=== PATIENT | male | born 1995 | race Caucasian/White ===

== ENCOUNTER 2020-11-17 21:16 | Emergency (ER) | payer BC ==
[2020-11-17] MEDS ORDERED: LISI10TA25 PO (21:39)
--- NOTE | 2020-11-17 21:39 | ED Cardiac General ---
History of Present Illness General Chief Complaint: Cardiac/General Problems Stated Complaint: HIGH BLOOD PRESSURE Source: patient Exam Limitations: no limitations (SHONA VERDIN APRN) History of Present Illness Date Seen by Provider: Nov 17, 2020 Time Seen by Provider: 21:35 Initial Comments To ER with high blood pressure. He saw [facility] walk-in clinic for an ear infection. She was found to have high blood pressure there and was told to go home and monitor it. This evening he checked it and found it to be 160/100. This alarmed him and he became nervous. He also states that he got a new job and is moving and has been under a bit more stress than usual. After noticing his blood pressure to be high this evening he developed a bit of chest pain which he believes to be related to his anxiety. He has no shortness of breath. He has no medical history. He is only worried about the numbers of the blood pressure. He has an appointment for [facility] follow-up tomorrow. Timing/Duration: changing over time Severity: moderate Location: central Activities at Onset: none Prior CP/Workup: no prior chest pain NTG SL CERTIFIED PROCEDURAL CODER: No ASA po CERTIFIED PROCEDURAL CODER: No (SHONA VERDIN APRN) Allergies and Home Medications Allergies Coded Allergies: Penicillins (Verified Allergy, Unknown, 11/17/20) Sulfa (Sulfonamide Antibiotics) (Verified Allergy, Unknown, 11/17/20) aspirin (Verified Allergy, Unknown, 11/17/20) Home Medications Lisinopril 10 Mg Tablet, 10 MG PO DAILY Prescribed by: SHONA VERDIN on 11/17/20 3140 Patient Home Medication List Home Medication List Reviewed: Yes (SHONA VERDIN APRN) Review of Systems Review of Systems Constitutional: see HPI EENTM: No Symptoms Reported Respiratory: No Symptoms Reported Cardiovascular: See HPI, Chest Pain (Which she states is related to his anxiety and likely is as he does appear anxious.); Denies Edema, Denies Irregular Heart Rate, Denies Lightheadedness, Denies Palpitations, Denies Syncope Gastrointestinal: See HPI Genitourinary: No Symptoms Reported Musculoskeletal: no symptoms reported Skin: no symptoms reported Psychiatric/Neurological: No Symptoms Reported Endocrine: No Symptoms Reported Hematologic/Lymphatic: No Symptoms Reported (SHONA VERDIN APRN) Past Lxyzlkh-Trjojt-Ihicfm Hx Patient Social History Tobacco Use?: No Substance use?: No Alcohol Use?: No Pt feels they are or have been: No (SHONA VERDIN APRN) Physical Exam Vital Signs Vital Signs - First Documented 11/17/20 21:33 Temp 37.0 Pulse 98 Resp 20 B/P (MAP) 204/129 (154) O2 Delivery Room Air (CAMERON MASON) Vital Signs Capillary Refill : (SHONA VERDIN APRN) Height, Weight, BMI Height: '" Weight: lbs. oz. kg; BMI Method: General Appearance: No Apparent Distress, WD/WN, Other (6 foot 8 and 450 pounds. Very pleasant, alert and oriented no distress. Heart rate upper 90s sinus. Oxygen 100% room air. Blood pressure one 204/120.) Neck: Full Range of Motion, Normal Inspection Respiratory: No Accessory Muscle Use, No Respiratory Distress Cardiovascular: Regular Rate, Rhythm, Normal Peripheral Pulses Gastrointestinal: Normal Bowel Sounds, Non Tender, Soft Neurologic/Psychiatric: Alert, Oriented x3 Skin: Normal Color, Warm/Dry (SHONA VERDIN APRN) Progress/Results/Core Measures Results/Orders Medications Given in ED Current Medications Medications Dose Ordered Sig/Ranjit Route Start Time Stop Time Status Last Admin Dose Admin Clonidine HCl 0.1 mg ONCE ONCE PO 11/17/20 21:45 11/17/20 21:46 DC 11/17/20 21:42 0.1 MG Metoprolol Tartrate 25 mg ONCE ONCE PO 11/17/20 21:45 11/17/20 21:46 DC 11/17/20 21:42 25 MG (CAMERON MASON) Vital Signs/I&O 11/17/20 21:33 Temp 37.0 Pulse 98 Resp 20 B/P (MAP) 204/129 (154) O2 Delivery Room Air (CAMERON MASON) Progress Progress Note : Time: 22:39 Progress Note Greater than 20% drop in blood pressure is successful. We will let him follow- up outpatient (CAMERON MASON) Departure Impression Primary Impression: Hypertension Disposition: 01 HOME, SELF-CARE Condition: Stable Departure-Patient Inst. Decision time for Depature: 21:38 (SHONA VERDIN APRN) Referrals: [facility] Patient Instructions: High Blood Pressure in Adults Add. Discharge Instructions: 1. Keep your appointment with community health tomorrow. Return to ER for any concerns. All discharge instructions reviewed with patient and/or family. Voiced understanding. Scripts Lisinopril (Lisinopril) 10 Mg Tablet 10 MG PO DAILY, #10 TAB Prov: SHONA VERDIN APRN 11/17/20 Copy Copies To 1: PAUL MCGRATH PETER J APRN Nov 17, 2020 21:39 CAMERON MASON Nov 17, 2020 22:40
[2020-11-17] MEDS ORDERED: meTOprolol TARTRATE 25 MG (LOPRESSOR) TABLET PO ONE (21:45)
[2020-11-17] MEDS ORDERED: cloNIDine 0.1 MG (CATAPRES) TAB PO ONE (21:45)
[2020-11-17 22:54] VITALS: BP 186/113
== END 2020-11-17 22:54 | disposition home or self-care (01) ==
LOC: ER 21:20
DX: I10 Essential (primary) hypertension (principal)
CPT/HCPCS: 99283